=== PATIENT | female | born 1995 | race Caucasian/White ===

== ENCOUNTER 2023-12-13 21:17 | Emergency (ER) | payer MEDICAID ==
[~2023-12-13] VITALS: Ht 162.6 cm; Wt 95.5 kg
[2023-12-13] MEDS: normal saline 1000ML IV soln IVB STA (21:37)
[2023-12-13] MEDS: epiNEPHrine 1 mg/ml inj SQ ONE (21:39)
[2023-12-13] MEDS: diphenhydrAMINE 50 mg/ml inj IV ONE (21:40)
[2023-12-13] MEDS: famotidine/PF 10 mg/ml inj IV ONE (21:41)
[2023-12-13] MEDS: LORazepam 2 mg/ml vial IV ONE (21:44)
[2023-12-13] MEDS: triamcinolone acetonide 40mg/ml inj IM ONE (21:50)
[2023-12-13] MEDS: methylPREDNISolone sod succ 125mg/2ml vial IV ONE (21:50)
[2023-12-13] MEDS ORDERED: EPIN0.3P3 IM (23:24)
[2023-12-13 23:43] VITALS: BP 146/69; PULSE 98; RESP 20; TEMP 98.4; O2SAT 98
== END 2023-12-13 23:44 | disposition home or self-care (01) ==
LOC: ER 21:17
DX: T78.1XXA Other adverse food reactions, not elsewhere classified, initial encounter (principal); X58.XXXA Exposure to other specified factors, initial encounter; Z91.013 Allergy to seafood; Z91.018 Allergy to other foods
CPT/HCPCS: 96361; 96372; 96374; 96375; 99285; J0171; J1200; J2060; J2919; J3301; J3490; J7030